=== PATIENT | female | born 1990 | race American Indian/Alaskan Native ===

== ENCOUNTER → 2016-07-05 | Outpatient (CLI) | payer MEDICAID ==
[~2016-07-05] MED LIST: ACYC5CRE2 TP; ACYC5CRE3 TP; ALBU8.5H3 INH; CETI5TAB3 PO; FAMO40TA4 PO; FLUT9.9S NAS; HYDR200T PO; LORA-446 PO; MEDR150D3 IM; MYCO500T PO; MYCO500T3 PO; QUET400T PO; QUET400T4 PO; SUCR1TAB PO; SUMA50TA4 PO
== END | disposition home or self-care (01) ==
LOC: RAD 16:12
PROVIDERS: ATTEND Specialist
DX: M32.9 Systemic lupus erythematosus, unspecified (principal); Z92.25 Personal history of immunosuppression therapy
CPT/HCPCS: 71020

== ENCOUNTER 2017-04-19 17:28 | Inpatient (IN) | payer MEDICAID ==
[~2017-04-19] VITALS: Ht 160 cm; Wt 119.0 kg
[~2017-04-19 17:28] MED LIST changes: -ALBU8.5H3 INH; +ALBU8.5H8 INH; +DEXAMETHASONE 4 MG/ML, 1ML ONE; +ONDANSETRON 2MG/ML, 2ML ONE; +PROPOFOL 10 MG/ML, 20ML ONE; +ROCURONIUM 10 MG/ML,10ML ONE; +SUCCINYLCHOLINE 20 MG/ML, 10ML ONE
[2017-04-19 17:35] VITALS: BP 138/80
[2017-04-19 17:54] VITALS: BP 138/80
[2017-04-19] MEDS ORDERED: ONDANSETRON ODT 4 MG PO PRN (18:00)
[2017-04-19] MEDS ORDERED: DOCUSATE 100 MG CAPSULE PO PRN (18:00)
[2017-04-19] MEDS ORDERED: ENALAPRILAT 1.25 MG/ML, 2ML IVPush PRN (18:00)
[2017-04-19] MEDS ORDERED: PLEASE ENTER HEIGHT AND WEIGHT MC SCH (18:00)
[2017-04-19] MEDS ORDERED: ACETAMINOPHEN 325 MG TABLET PO PRN ×2 (18:00→20:30)
[2017-04-19] MEDS ORDERED: DEXTROSE 4 GM TAB.CHEW PO PRN (19:00)
[2017-04-19] MEDS ORDERED: GLUCAGON 1 MG IM PRN (19:00)
[2017-04-19] MEDS ORDERED: MIDAZOLAM 1 MG/ML, 2ML ONE (19:46)
[2017-04-19] MEDS ORDERED: FENTANYL PF 100 MCG/2ML ONE ×2 (19:46→20:32)
[2017-04-19] MEDS ORDERED: LIDOCAINE/MPF 2%-EPI 1:200K, 20 ML ONE (19:52)
[2017-04-19] MEDS ORDERED: METOCLOPRAMIDE 5 MG/ML, 2ML IV PRN (20:30)
[2017-04-19] MEDS ORDERED: ONDANSETRON 2MG/ML, 2ML IVPush PRN (20:30)
[2017-04-19] MEDS ORDERED: LABETALOL 5MG/ML, 20ML IV PRN (20:30)
[2017-04-19] MEDS ORDERED: FENTANYL PF 100 MCG/2ML IV PRN (20:30)
[2017-04-19] MEDS ORDERED: hydrALAzine 20 MG/ML, 1ML IV PRN (20:30)
[2017-04-19] MEDS ORDERED: HYDROmorphone 1 MG/ML, 1ML IV PRN (20:30)
[2017-04-19] MEDS ORDERED: OXYcodone 5 MG/5 ML ORAL.SOL UDC PO PRN (20:30)
[2017-04-19] MEDS ORDERED: ACETAMINOPHEN 650 MG/20.3 ML UDC ONE (20:32)
[2017-04-19] MEDS ORDERED: MEPERIDINE/PF 50 MG/ML ONE (20:33)
[2017-04-19] MEDS ORDERED: OXYcodone 5 MG/5 ML ORAL.SOL UDC ONE (20:33)
[2017-04-19] MEDS ORDERED: LIDOCAINE 2%-EPI 1:100K, 30ML INFIL ONE (20:33)
[2017-04-19] MEDS ORDERED: MEPERIDINE/PF 25MG/0.5ML IVPush ONE (21:00)
[2017-04-19] MEDS: INSULIN ASPART 100 UNITS/ML, PEN SQ-INSULIN SCH (22:45)
[2017-04-19] MEDS: CHLORHEXIDINE MOUTHWASH 15 ML UDC MM SCH (22:45)
[2017-04-19] MEDS: SODIUM CHLORIDE FLUSH 10ML SYR IVF SCH (23:26)
[2017-04-20 00:02] VITALS: BP 129/64
[2017-04-20] MEDS: CLINDAMYCIN PMX 600MG/50ML 50 ML IV SCH ×2 (00:29→08:36)
[2017-04-20 04:31] VITALS: BP 127/71
[2017-04-20] MEDS ORDERED: MELA1TAB22 PO (04:39)
[2017-04-20] MEDS ORDERED: MYCO500T3 PO (04:39)
[2017-04-20] MEDS ORDERED: LURA40TA PO (04:39)
[2017-04-20] MEDS ORDERED: SERT100T5 PO (04:39)
[2017-04-20 05:43] LABS: BASOPHILS # (AUTO) 0.02 x10^3/uL (0-0.1); BASOPHILS % (AUTO) 0 % (0-1); EOSINOPHILS % (AUTO) 0 % (1-7); LYMPHOCYTES # (AUTO) 1.63 x10^3/uL (1-3.4); LYMPHOCYTES % (AUTO) 12 % (22-44); MD NO; MEAN CORPUSCULAR HEMOGLOBIN 28.4 pg (27.0-34.8); MEAN CORPUSCULAR HGB CONC 33.2 g/dL (32.4-35.8); MEAN CORPUSCULAR VOLUME 85.7 fL (80-100); MEAN PLATELET VOLUME 9.5 fL (7.4-10.4); MONOCYTES # (AUTO) 1.07 x10^3/uL (0.2-0.8); MONOCYTES % (AUTO) 8 % (2-9); NEUTROPHILS # (AUTO) 11.17 x10^3/uL (1.8-6.8); NEUTROPHILS % (AUTO) 80 % (42-75); PLATELET COUNT 274 x10^3/uL (130-400); RED BLOOD COUNT 4.44 x10^6/uL (3.82-5.3); RED CELL DISTRIBUTION WIDTH 15.1 % (9.6-15.2)
[2017-04-20 05:55] LABS: ANION GAP 8 mmol/L (5-15); CALCIUM 8.4 mg/dL (8.5-10.1); CHLORIDE 110 mmol/L (98-107)
[2017-04-20 05:57] LABS: CREATININE 0.76 mg/dL (0.55-1.02)
[2017-04-20 06:49] VITALS: BP 109/58
[2017-04-20] MEDS: INSULIN ASPART 100 UNITS/ML, PEN SQ-INSULIN SCH ×2 (07:21→11:00)
[2017-04-20] MEDS: CHLORHEXIDINE MOUTHWASH 15 ML UDC MM SCH (08:35)
[2017-04-20] MEDS: SODIUM CHLORIDE FLUSH 10ML SYR IVF SCH (08:36)
[2017-04-20] MEDS ORDERED: ONDA4TAB13 PO (11:06)
[2017-04-20] MEDS ORDERED: CHLO473M MM (11:06)
[2017-04-20] MEDS ORDERED: CLIN300C8 PO (11:06)
[2017-04-20] MEDS ORDERED: HYDR-3240 PO (11:06)
[2017-04-20 12:54] VITALS: BP 103/59
== END 2017-04-20 14:40 | disposition home or self-care (01) | DRG 158 ==
LOC: 4NOR 17:28
PROVIDERS: ADMIT Family Medicine; ATTEND Family Medicine
PROC: 0CDWXZ1 Extraction of Upper Tooth, Multiple, External Approach (ICD-10-PCS; principal; 2017-04-19 19:30)
DX: K04.7 Periapical abscess without sinus (principal); Z68.42 Body mass index [BMI] 45.0-49.9, adult; E66.01 Morbid (severe) obesity due to excess calories; L02.412 Cutaneous abscess of left axilla; F31.9 Bipolar disorder, unspecified; K02.9 Dental caries, unspecified; M27.2 Inflammatory conditions of jaws; M32.9 Systemic lupus erythematosus, unspecified; Z88.0 Allergy status to penicillin; Z88.8 Allergy status to other drugs, medicaments and biological substances; Z91.030 Bee allergy status; Z91.018 Allergy to other foods
CPT/HCPCS: 36415; 70100; 80048; 82962; 85025; J1100; J1815; J2175; J2250; J2405; J2704; J3010; J3490; J0330

== ENCOUNTER → 2017-11-28 | Outpatient (CLI) | payer MEDICAID ==
[~2017-11-28] MED LIST changes: +CHLO473M MM; +CLIN300C8 PO; -DEXAMETHASONE 4 MG/ML, 1ML ONE; +HYDR-3240 PO; -HYDR200T PO; +HYDR200T72 PO; +LIDOCAINE-MPF 2%, 2ML ONE; +LURA40TA PO; +MELA1TAB22 PO; +ONDA4TAB13 PO; -ONDANSETRON 2MG/ML, 2ML ONE; -PROPOFOL 10 MG/ML, 20ML ONE; -ROCURONIUM 10 MG/ML,10ML ONE; +SERT100T5 PO; -SUCCINYLCHOLINE 20 MG/ML, 10ML ONE; +VISIPAQUE 270 MG/ML, 50ML BOTTLE ONE
== END | disposition home or self-care (01) ==
LOC: RAD 14:17
PROVIDERS: ATTEND Specialist
DX: M32.9 Systemic lupus erythematosus, unspecified (principal)
CPT/HCPCS: 76000; J1642; J3490; Q9966

== ENCOUNTER 2018-02-06 10:36 | Day surgery (SDC) | payer MEDICAID ==
[~2018-02-06] VITALS: Ht 157.5 cm; Wt 131.5 kg
[~2018-02-06 10:36] MED LIST changes: -LIDOCAINE-MPF 2%, 2ML ONE; -VISIPAQUE 270 MG/ML, 50ML BOTTLE ONE
[2018-02-06 11:13] VITALS: BP 124/83
[2018-02-06] MEDS ORDERED: SODIUM CHLORIDE 0.9% 1,000 ML IV SCH (11:30)
[2018-02-06] MEDS ORDERED: LIDOCAINE/PF 1%, 30ML ONE (12:18)
[2018-02-06] MEDS ORDERED: FLUMAZENIL 0.1 MG/1 ML, 5ML ONE (12:44)
[2018-02-06] MEDS ORDERED: FENTANYL PF 100 MCG/2ML ONE (12:44)
[2018-02-06] MEDS ORDERED: MIDAZOLAM 1 MG/ML, 5ML ONE (12:44)
[2018-02-06] MEDS ORDERED: NALOXONE 1 MG/ML, 2ML ONE (12:45)
== END 2018-02-06 14:50 | disposition home or self-care (01) ==
LOC: OUT 10:36
PROVIDERS: ATTEND Specialist
DX: Z45.2 Encounter for adjustment and management of vascular access device (principal); M32.9 Systemic lupus erythematosus, unspecified; J45.909 Unspecified asthma, uncomplicated; E66.01 Morbid (severe) obesity due to excess calories; Z88.0 Allergy status to penicillin
CPT/HCPCS: 36590; 77001; 99156; 99157; J2250; J3010; J3490; J7030; J2310

== ENCOUNTER 2019-04-24 00:34 | Inpatient (IN) | payer MEDICAID ==
[~2019-04-24] VITALS: Ht 157.5 cm; Wt 120.0 kg
[~2019-04-24 00:34] MED LIST changes: +SERT100T32 PO; -SERT100T5 PO
[2019-04-24] MEDS ORDERED: POLYETHYLENE GLYCOL 17 GM PACKET PO PRN (02:30)
[2019-04-24] MEDS ORDERED: ACETAMINOPHEN 325 MG TABLET PO PRN (02:30)
[2019-04-24] MEDS ORDERED: DOCUSATE 100 MG CAPSULE PO PRN (02:30)
[2019-04-24] MEDS ORDERED: BISACODYL 10 MG SUPP PR PRN (02:30)
[2019-04-24] MEDS ORDERED: ONDANSETRON ODT 4 MG PO PRN (02:30)
[2019-04-24 04:00] VITALS: BP 143/87
[2019-04-24 05:07] LABS: MICROSCOPIC NOT IND
[2019-04-24 05:24] LABS: CULTURE INDICATED? NO
[2019-04-24] MEDS ORDERED: FLU VACC QS2019-20 36MOS UP/PF 0.5 ML IM-VACC ONE (06:00)
[2019-04-24 07:42] VITALS: BP 109/74
[2019-04-24 08:43] LABS: CHOLESTEROL, TOTAL 159 mg/dL (140-239)
[2019-04-24 08:46] LABS: BASOPHILS # (AUTO) 0.06 x10^3/uL (0-0.1); BASOPHILS % (AUTO) 1 % (0-1); EOSINOPHILS # (AUTO) 0.19 x10^3/uL (0-0.4); EOSINOPHILS % (AUTO) 2 % (1-7); LYMPHOCYTES # (AUTO) 3.39 x10^3/uL (1-3.4); LYMPHOCYTES % (AUTO) 37 % (22-44); MD NO; MEAN CORPUSCULAR HEMOGLOBIN 29.4 pg (27.0-34.8); MEAN CORPUSCULAR HGB CONC 32.9 g/dL (32.4-35.8); MEAN CORPUSCULAR VOLUME 89.2 fL (80-100); MEAN PLATELET VOLUME 9.4 fL (7.4-10.4); MONOCYTES # (AUTO) 0.73 x10^3/uL (0.2-0.8); MONOCYTES % (AUTO) 8 % (2-9); NEUTROPHILS # (AUTO) 4.87 x10^3/uL (1.8-6.8); NEUTROPHILS % (AUTO) 53 % (42-75); PLATELET COUNT 298 x10^3/uL (130-400); RED BLOOD COUNT 4.48 x10^6/uL (3.82-5.3); RED CELL DISTRIBUTION WIDTH 14.2 % (9.6-15.2)
[2019-04-24 08:48] LABS: CHOL/HDL RATIO 3.1; FREE T4 (FREE THYROXINE) 0.99 ng/dL (0.76-1.46); HDL CHOL % 33 % (28-40); HDL CHOLESTEROL (DIRECT) 52 mg/dL (40-60); LDL CHOLESTEROL,CALCULATED 83 mg/dL (54-169); LDL/HDL RATIO 1.6 (0.5-3.0); TRIGLYCERIDES 119 mg/dL (50-200); VLDL CHOLESTEROL 24 mg/dL (0-25)
[2019-04-24] MEDS ORDERED: MONT10TA9 PO (10:54)
[2019-04-24] MEDS ORDERED: CETI-237 PO (10:54)
[2019-04-24] MEDS ORDERED: PRAZ1CAP2 PO (10:54)
[2019-04-24] MEDS ORDERED: PANT40TA5 PO (10:54)
[2019-04-24] MEDS ORDERED: CALC-47 PO (10:54)
[2019-04-24] MEDS ORDERED: TRAZ50TA66 PO (10:54)
[2019-04-24] MEDS: IBUPROFEN 200 MG TABLET PO PRN (11:08)
[2019-04-24] MEDS ORDERED: CALCIUM/VITAMIN D3 250-125 TABLET PO SCH (12:30)
[2019-04-24] MEDS ORDERED: PANTOPROZOLE 40MG TABLET PO SCH (12:30)
[2019-04-24] MEDS ORDERED: PANTOPROZOLE 40MG TABLET ONE (13:41)
[2019-04-24] MEDS: PANTOPROZOLE 40MG TABLET PO SCH (13:49)
[2019-04-24] MEDS: FLUOXETINE HCL 20 MG CAPSULE PO SCH (14:32)
[2019-04-24] MEDS: LORazepam 1MG TABLET PO PRN (17:49)
[2019-04-24 19:07] VITALS: BP 122/83
[2019-04-24] MEDS: QUETIAPINE 100MG TABLET PO SCH (19:42)
[2019-04-24] MEDS: MONTELUKAST 10 MG TABLET PO SCH (19:42)
[2019-04-24] MEDS: PRAZOSIN 1 MG CAPSULE PO SCH (19:42)
[2019-04-25 07:27] VITALS: BP 117/80
[2019-04-25] MEDS ORDERED: PANTOPROZOLE 40MG TABLET PO SCH (09:00)
[2019-04-25] MEDS: PANTOPROZOLE 40MG TABLET PO SCH (09:37)
[2019-04-25] MEDS: IBUPROFEN 200 MG TABLET PO PRN ×2 (09:38→20:39)
[2019-04-25] MEDS: FLUOXETINE HCL 20 MG CAPSULE PO SCH (09:38)
[2019-04-25] MEDS: CALCIUM/VITAMIN D3 250-125 TABLET PO SCH (09:39)
[2019-04-25 19:29] VITALS: BP 122/81
[2019-04-25] MEDS: PRAZOSIN 1 MG CAPSULE PO SCH (20:40)
[2019-04-25] MEDS: QUETIAPINE 100MG TABLET PO SCH (20:40)
[2019-04-25] MEDS: MONTELUKAST 10 MG TABLET PO SCH (20:41)
[2019-04-26 07:15] VITALS: BP 97/66
[2019-04-26] MEDS: PANTOPROZOLE 40MG TABLET PO SCH (08:39)
[2019-04-26] MEDS: CALCIUM/VITAMIN D3 250-125 TABLET PO SCH (08:39)
[2019-04-26] MEDS: FLUOXETINE HCL 20 MG CAPSULE PO SCH (08:40)
[2019-04-26] MEDS: LORazepam 1MG TABLET PO PRN (09:52)
[2019-04-26 19:38] VITALS: BP 116/75
[2019-04-26] MEDS: MONTELUKAST 10 MG TABLET PO SCH (21:36)
[2019-04-26] MEDS: ACAMPROSATE 333 MG TABLET.DR PO SCH (21:36)
[2019-04-26] MEDS: PRAZOSIN 1 MG CAPSULE PO SCH (21:36)
[2019-04-26] MEDS: QUETIAPINE 100MG TABLET PO SCH (21:36)
[2019-04-27] MEDS: IBUPROFEN 200 MG TABLET PO PRN ×3 (05:27→20:37)
[2019-04-27 07:56] VITALS: BP 123/87
[2019-04-27] MEDS: PANTOPROZOLE 40MG TABLET PO SCH (08:46)
[2019-04-27] MEDS: CALCIUM/VITAMIN D3 250-125 TABLET PO SCH (08:46)
[2019-04-27] MEDS: FLUOXETINE HCL 20 MG CAPSULE PO SCH (08:46)
[2019-04-27] MEDS: ACAMPROSATE 333 MG TABLET.DR PO SCH ×3 (08:46→20:34)
[2019-04-27] MEDS: LORazepam 1MG TABLET PO PRN (17:27)
[2019-04-27 20:30] VITALS: BP 133/89
[2019-04-27] MEDS: QUETIAPINE 100MG TABLET PO SCH (20:34)
[2019-04-27] MEDS: PRAZOSIN 1 MG CAPSULE PO SCH (20:35)
[2019-04-27] MEDS: MONTELUKAST 10 MG TABLET PO SCH (20:35)
[2019-04-28 07:48] VITALS: BP 117/79
[2019-04-28] MEDS: CALCIUM/VITAMIN D3 250-125 TABLET PO SCH (08:32)
[2019-04-28] MEDS: FLUOXETINE HCL 20 MG CAPSULE PO SCH (08:32)
[2019-04-28] MEDS: PANTOPROZOLE 40MG TABLET PO SCH (08:32)
[2019-04-28] MEDS: ACAMPROSATE 333 MG TABLET.DR PO SCH ×4 (08:33→21:15)
[2019-04-28] MEDS: IBUPROFEN 200 MG TABLET PO PRN ×2 (08:38→17:46)
[2019-04-28] MEDS: LORazepam 1MG TABLET PO PRN (13:11)
[2019-04-28] MEDS ORDERED: PRAZ1CAP2 PO (16:28)
[2019-04-28] MEDS ORDERED: ACAM333T7 PO (16:28)
[2019-04-28] MEDS ORDERED: QUET100T PO (16:28)
[2019-04-28] MEDS ORDERED: FLUO20CA8 PO (16:28)
[2019-04-28] MEDS ORDERED: MONT10TA9 PO (16:28)
[2019-04-28] MEDS ORDERED: PANT40TA5 PO (16:28)
[2019-04-28] MEDS: MONTELUKAST 10 MG TABLET PO SCH (21:15)
[2019-04-28] MEDS: QUETIAPINE 100MG TABLET PO SCH (21:15)
[2019-04-28] MEDS: PRAZOSIN 1 MG CAPSULE PO SCH (21:15)
[2019-04-29] MEDS: IBUPROFEN 200 MG TABLET PO PRN (06:16)
[2019-04-29 06:59] VITALS: BP 133/81
[2019-04-29] MEDS: CALCIUM/VITAMIN D3 250-125 TABLET PO SCH (08:25)
[2019-04-29] MEDS: PANTOPROZOLE 40MG TABLET PO SCH (08:25)
[2019-04-29] MEDS: FLUOXETINE HCL 20 MG CAPSULE PO SCH (08:25)
== END 2019-04-29 09:16 | disposition home or self-care (01) | DRG 751 ==
LOC: 3E 03:04
PROVIDERS: ADMIT Psychiatry & Neurology Psychosomatic Medicine; ATTEND Psychiatry & Neurology Psychosomatic Medicine
DX: F33.2 Major depressive disorder, recurrent severe without psychotic features (principal); M32.9 Systemic lupus erythematosus, unspecified; E66.01 Morbid (severe) obesity due to excess calories; F43.10 Post-traumatic stress disorder, unspecified; K21.9 Gastro-esophageal reflux disease without esophagitis; Z91.5 Personal history of self-harm; Z68.42 Body mass index [BMI] 45.0-49.9, adult
CPT/HCPCS: 36415; 71045; 80061; 81003; 82607; 84439; 84443; 84703; 85025; 90686; 93005

== ENCOUNTER 2019-05-03 15:35 | Emergency (ER) | payer MEDICAID ==
[~2019-05-03] VITALS: Ht 157.5 cm; Wt 120.9 kg
[~2019-05-03 15:35] MED LIST changes: +ACAM333T7 PO; +CALC-47 PO; +CETI-237 PO; +FLUO20CA23 PO; +MONT10TA11 PO; +PANT40TA5 PO; +PRAZ1CAP2 PO; +QUET100T PO; +TRAZ50TA66 PO
--- NOTE | 2019-05-03 16:02 | NUR ---
FIRST CONTACT WITH PT. DEPRESSION/SI - PT STATES "I DON'T HAVE A PLAN, JUST THOUGHTS, I HAVE TRIED TO JUMP IN FRONT OF A BUS BEFORE" PT'S AOX4. RESPS EVEN AND UNLABORED. PT DENIES ANY PHYSICAL COMPLAINTS.
--- NOTE | 2019-05-03 16:06 | NUR ---
PT BELONGINGHS PUT INTO 3 BAGS AND PT HAS ONE BACKPACK. EVERYTHING PUT INTO THE LOCKER AT THIS TIME.
--- NOTE | 2019-05-03 16:26 | NUR ---
EDMD AT BEDSIDE TO EVALUATE AT THIS TIME.
--- NOTE | 2019-05-03 16:26 | NUR ---
MEAL TRAY PROVIDED AT THIS TIME.
--- NOTE | 2019-05-03 17:05 | NUR ---
LAB AT BEDSIDE. PILLOW GIVEN AT THIS TIME PER PT REQUEST.
--- NOTE | 2019-05-03 17:15 | NUR ---
PT AMB TO BR WITH THIS RN FOR UA.
[2019-05-03 17:19] LABS: BASOPHILS # (AUTO) 0.07 x10^3/uL (0-0.1); BASOPHILS % (AUTO) 1 % (0-1); EOSINOPHILS # (AUTO) 0.18 x10^3/uL (0-0.4); EOSINOPHILS % (AUTO) 2 % (1-7); LYMPHOCYTES % (AUTO) 25 % (22-44); MD NO; MEAN CORPUSCULAR HEMOGLOBIN 29.1 pg (27.0-34.8); MEAN CORPUSCULAR HGB CONC 32.6 g/dL (32.4-35.8); MEAN CORPUSCULAR VOLUME 89.4 fL (80-100); MONOCYTES # (AUTO) 0.71 x10^3/uL (0.2-0.8); MONOCYTES % (AUTO) 7 % (2-9); NEUTROPHILS # (AUTO) 6.99 x10^3/uL (1.8-6.8); NEUTROPHILS % (AUTO) 66 % (42-75); PLATELET COUNT 328 x10^3/uL (130-400); RED BLOOD COUNT 4.66 x10^6/uL (3.82-5.3); RED CELL DISTRIBUTION WIDTH 14.2 % (9.6-15.2)
--- NOTE | 2019-05-03 17:19 | NUR ---
PT PROVIDED URINE SAMPLE AT THIS TIME. UA SENT.
[2019-05-03 17:26] LABS: ALANINE AMINOTRANSFERASE 32 U/L (12-78); ALBUMIN 3.3 g/dL (3.4-5.0); ANION GAP 8 mmol/L (5-15); CALCIUM 8.5 mg/dL (8.5-10.1); CHLORIDE 108 mmol/L (98-107); CREATININE 0.94 mg/dL (0.55-1.02)
[2019-05-03 17:27] LABS: SALICYLATE LEVEL < 1.7 mg/dL (2.8-20.0)
[2019-05-03 17:31] LABS: ALKALINE PHOSPHATASE 94 U/L (45-117); BILIRUBIN,TOTAL 0.3 mg/dL (0.2-1.0)
--- NOTE | 2019-05-03 17:34 | NUR ---
soc called for consult
[2019-05-03 17:38] LABS: AMPHETAMINE SCREEN, URINE Negative (Negative); BARBITURATE SCREEN, URINE Negative (Negative); BENZODIAZEPINE SCREEN, URINE Negative (Negative); CANNABINOID SCREEN, URINE Negative (Negative); COCAINE SCREEN, URINE Negative (Negative); METHADONE SCREEN, URINE Negative (Negative); OPIATE SCREEN, URINE Negative (Negative)
--- NOTE | 2019-05-03 18:38 | NUR ---
PT RESTING IN [place]. RESPS EVEN AND UNLABORED. AWAITING SOC CONSULT AT THIS TIME.
--- NOTE | 2019-05-03 18:58 | NUR ---
REPORT GIVEN TO JORGE GARDINER.
--- NOTE | 2019-05-03 19:09 | NUR ---
RECEIVED RPT FROM ABDIFATAH CALIXTO. ASSUMED CARE OF PT.
--- NOTE | 2019-05-03 20:57 | NUR ---
RPT GIVEN TO SOC. NO OTHER NEEDS AT THIS TIME. TELE PSYCH IN PROGRESS.
--- NOTE | 2019-05-03 21:30 | NUR ---
TALKED WITH TELE PSYCH. PT STATES SHE HAD A PLAN. "WAITING TO GET HER HANDS ON SOMETHING SHARP SO SHE CAN CUT THE BIGGEST ARTERY SHE CAN FIND" PT PLACED ON HOLD.
--- NOTE | 2019-05-03 21:39 | NUR ---
psych packet faxed to [facility], [facility], [facility], [facility], [facility].
[2019-05-03] MEDS ORDERED: IBUPROFEN 600 MG TABLET ONE (21:41)
[2019-05-03] MEDS ORDERED: IBUPROFEN 200 MG TABLET PO ONE (22:00)
--- NOTE | 2019-05-03 22:00 | NUR ---
PT RESTING WITH EYES CLOSED. SAFTEY PRECAUTIONS IN PLACE. SITTER AT DOORWAY
[2019-05-03 22:07] VITALS: BP 116/71
--- NOTE | 2019-05-03 23:44 | NUR ---
[facility] NOTE:Patient insurance verified and confirmed with [facility] admitting. Awaiting callback from Dr. Singh for admit or refusal to [facility].
--- NOTE | 2019-05-04 | NUR ---
PT RESTING WITH EYES CLOSED. SAFTEY PRECAUTIONS IN PLACE. SITTER AT DOORWAY
--- NOTE | 2019-05-04 01:38 | NUR ---
PT RESTING WITH EYES CLOSED. SAFTEY PRECAUTIONS IN PLACE. SITTER AT DOORWAY.
--- NOTE | 2019-05-04 02:30 | NUR ---
PT RESTING WITH EYES CLOSED. SAFTEY PRECAUTIONS IN PLACE. SITTER AT DOORWAY.
--- NOTE | 2019-05-04 03:38 | NUR ---
CALLED RPT TO [facility] RN, PT READY FOR TRANSFER.
[2019-05-06] MEDS ORDERED: VALA500T8 PO (13:23)
== END 2019-05-04 03:47 ==
LOC: ED 17:20
DX: R45.851 Suicidal ideations (principal); F32.9 Major depressive disorder, single episode, unspecified
CPT/HCPCS: 36415; 80053; 80307; 84703; 85025; 99285

== ENCOUNTER 2019-05-04 03:09 | Inpatient (IN) | payer MEDICAID ==
[~2019-05-04] VITALS: Ht 170.2 cm; Wt 120.9 kg
[~2019-05-04 03:09] MED LIST changes: -FLUO20CA23 PO; +FLUO20CA8 PO; -MONT10TA11 PO; +MONT10TA9 PO
[2019-05-04] MEDS ORDERED: ONDANSETRON ODT 4 MG PO PRN (03:30)
[2019-05-04] MEDS ORDERED: DOCUSATE 100 MG CAPSULE PO PRN (03:30)
[2019-05-04] MEDS ORDERED: BISACODYL 10 MG SUPP PR PRN (03:30)
[2019-05-04] MEDS ORDERED: POLYETHYLENE GLYCOL 17 GM PACKET PO PRN (03:30)
[2019-05-04] MEDS ORDERED: ACETAMINOPHEN 325 MG TABLET PO PRN (03:30)
[2019-05-04] MEDS ORDERED: PLEASE ENTER HEIGHT AND WEIGHT MC SCH (04:00)
[2019-05-04 05:25] VITALS: BP 124/86
[2019-05-04 07:46] VITALS: BP 110/70
[2019-05-04] MEDS ORDERED: POTASSIUM CHLORIDE 20 MEQ PACKET PO ONE (08:30)
[2019-05-04] MEDS ORDERED: IBUPROFEN 600 MG TABLET PO PRN (08:30)
[2019-05-04] MEDS: CLINDAMYCIN 300 MG CAPSULE PO SCH ×3 (09:15→20:19)
[2019-05-04 11:40] LABS: MICROSCOPIC INDICATED
[2019-05-04 11:43] LABS: CULTURE INDICATED? YES
[2019-05-04 20:14] VITALS: BP 117/79
[2019-05-04] MEDS: QUETIAPINE 100MG TABLET PO SCH (20:19)
[2019-05-05] MEDS: CLINDAMYCIN 300 MG CAPSULE PO SCH ×4 (02:40→20:37)
[2019-05-05 06:02] LABS: BASOPHILS # (AUTO) 0.02 x10^3/uL (0-0.1); BASOPHILS % (AUTO) 0 % (0-1); EOSINOPHILS # (AUTO) 0.16 x10^3/uL (0-0.4); EOSINOPHILS % (AUTO) 3 % (1-7); LYMPHOCYTES # (AUTO) 2.61 x10^3/uL (1-3.4); LYMPHOCYTES % (AUTO) 42 % (22-44); MD NO; MEAN PLATELET VOLUME 9.4 fL (7.4-10.4); MONOCYTES # (AUTO) 0.51 x10^3/uL (0.2-0.8); MONOCYTES % (AUTO) 8 % (2-9); NEUTROPHILS # (AUTO) 2.88 x10^3/uL (1.8-6.8); NEUTROPHILS % (AUTO) 47 % (42-75); PLATELET COUNT 312 x10^3/uL (130-400); RED BLOOD COUNT 4.26 x10^6/uL (3.82-5.3); RED CELL DISTRIBUTION WIDTH 14.3 % (9.6-15.2)
[2019-05-05 06:04] LABS: ANION GAP 6 mmol/L (5-15); CALCIUM 9.1 mg/dL (8.5-10.1); CHLORIDE 110 mmol/L (98-107)
[2019-05-05 06:32] LABS: CHOL/HDL RATIO 3.3; CHOLESTEROL, TOTAL 144 mg/dL (140-239); CREATININE 0.77 mg/dL (0.55-1.02); FREE T4 (FREE THYROXINE) 1.04 ng/dL (0.76-1.46); HDL CHOL % 30 % (28-40); HDL CHOLESTEROL (DIRECT) 43 mg/dL (40-60); LDL CHOLESTEROL,CALCULATED 86 mg/dL (54-169); TRIGLYCERIDES 75 mg/dL (50-200); VLDL CHOLESTEROL 15 mg/dL (0-25)
[2019-05-05 07:33] VITALS: BP 103/69
[2019-05-05] MEDS: VALACYCLOVIR 500MG TABLET PO SCH ×2 (10:57→20:37)
[2019-05-05] MEDS: LACTOBACILLUS CHEW TABLET PO SCH ×3 (10:57→20:37)
[2019-05-05] MEDS: SERTRALINE 50MG TABLET PO SCH (16:22)
[2019-05-05 19:56] VITALS: BP 105/64
[2019-05-05] MEDS: QUETIAPINE 100MG TABLET PO SCH (20:37)
[2019-05-05] MEDS ORDERED: PRAZOSIN 2 MG CAPSULE PO SCH (21:00)
[2019-05-06] MEDS: CLINDAMYCIN 300 MG CAPSULE PO SCH ×3 (03:20→16:24)
[2019-05-06] MEDS: LACTOBACILLUS CHEW TABLET PO SCH ×3 (05:59→16:24)
[2019-05-06 07:17] VITALS: BP 134/92
[2019-05-06] MEDS: VALACYCLOVIR 500MG TABLET PO SCH (09:38)
[2019-05-06] MEDS: SERTRALINE 50MG TABLET PO SCH (09:38)
[2019-05-06] MEDS ORDERED: PRAZ2CAP2 PO (13:23)
[2019-05-06] MEDS ORDERED: CLIN300C8 PO (13:23)
[2019-05-06] MEDS ORDERED: VALA500T PO (13:23)
[2019-05-06] MEDS ORDERED: SERT50TA28 PO (13:23)
[2019-05-06] MEDS ORDERED: ACID1TAB7 PO (13:23)
== END 2019-05-06 14:45 | disposition home or self-care (01) | DRG 751 ==
LOC: 3E 03:47
PROVIDERS: ADMIT Psychiatry & Neurology Psychosomatic Medicine; ATTEND Psychiatry & Neurology Psychosomatic Medicine
DX: F33.2 Major depressive disorder, recurrent severe without psychotic features (principal); E66.01 Morbid (severe) obesity due to excess calories; E46 Unspecified protein-calorie malnutrition; R45.851 Suicidal ideations; Z68.41 Body mass index [BMI] 40.0-44.9, adult; L03.116 Cellulitis of left lower limb; L97.129 Non-pressure chronic ulcer of left thigh with unspecified severity; F43.10 Post-traumatic stress disorder, unspecified; F41.1 Generalized anxiety disorder; G47.00 Insomnia, unspecified; J45.909 Unspecified asthma, uncomplicated; F17.210 Nicotine dependence, cigarettes, uncomplicated; E87.6 Hypokalemia; D72.829 Elevated white blood cell count, unspecified; L73.9 Follicular disorder, unspecified; R59.0 Localized enlarged lymph nodes; K59.00 Constipation, unspecified; K21.9 Gastro-esophageal reflux disease without esophagitis; Z60.2 Problems related to living alone; Z56.0 Unemployment, unspecified; Z91.5 Personal history of self-harm; Z79.899 Other long term (current) drug therapy; Z72.89 Other problems related to lifestyle; Z91.030 Bee allergy status; Z91.018 Allergy to other foods; Z88.0 Allergy status to penicillin; Z88.8 Allergy status to other drugs, medicaments and biological substances; Z91.048 Other nonmedicinal substance allergy status
CPT/HCPCS: 36415; 80048; 80061; 81001; 82607; 84439; 84443; 85025; 87086; 93005

== ENCOUNTER 2019-10-31 11:54 | Emergency (ER) | payer MEDICAID ==
[~2019-10-31] VITALS: Ht 157.5 cm; Wt 125.0 kg
[~2019-10-31 11:54] MED LIST changes: +ACID1TAB7 PO; +FLUO20CA23 PO; -FLUO20CA8 PO; +MONT10TA11 PO; -MONT10TA9 PO; +PRAZ2CAP2 PO; +SERT50TA28 PO; +VALA500T8 PO
[2019-10-31 12:00] VITALS: BP 110/78
--- NOTE | 2019-10-31 12:08 | NUR ---
pt from [facility]. [place]/body aches/sore throat x2 days. denies being around covid pts, no cough. no urinary sx/abd sx. hx lupus but in remission. motrin per ems. temp 101.5 oral, pt sts "that's normal for me". tachy 100s. awaitting md. call castro in reach. as
[2019-10-31] MEDS ORDERED: ACETAMINOPHEN 325 MG TABLET ONE (12:23)
[2019-10-31] MEDS ORDERED: ACETAMINOPHEN 325 MG TABLET PO ONE (12:30)
[2019-10-31] MEDS ORDERED: IBUPROFEN 600 MG TABLET PO ONE (12:30)
[2019-10-31 12:32] LABS: MEAN CORPUSCULAR HEMOGLOBIN 27.5 pg (27.0-34.8); MEAN CORPUSCULAR HGB CONC 31.9 g/dL (32.4-35.8); MEAN CORPUSCULAR VOLUME 86.2 fL (80-100); MEAN PLATELET VOLUME 8.4 fL (7.4-10.4); PLATELET COUNT 354 x10^3/uL (130-400); RED BLOOD COUNT 4.62 x10^6/uL (3.82-5.3); RED CELL DISTRIBUTION WIDTH 15.2 % (9.6-15.2)
--- NOTE | 2019-10-31 12:37 | NUR ---
oob to bathroom gait steady. as
[2019-10-31 12:42] LABS: ALBUMIN 3.6 g/dL (3.4-5.0); ANION GAP 3 mmol/L (5-15); CALCIUM 8.9 mg/dL (8.5-10.1); CHLORIDE 109 mmol/L (98-107)
[2019-10-31 12:45] LABS: ALANINE AMINOTRANSFERASE 27 U/L (12-78); ALKALINE PHOSPHATASE 96 U/L (45-117); BILIRUBIN,TOTAL 0.6 mg/dL (0.2-1.0); CREATININE 0.89 mg/dL (0.55-1.02); TOTAL PROTEIN 7.7 g/dL (6.4-8.2)
[2019-10-31 13:26] LABS: BASOPHILS # (AUTO) 0.01 x10^3/uL (0-0.1); BASOPHILS % (AUTO) 0 % (0-1); EOSINOPHILS # (AUTO) 0.04 x10^3/uL (0-0.4); EOSINOPHILS % (AUTO) 0 % (1-7); LYMPHOCYTES # (AUTO) 1.85 x10^3/uL (1-3.4); LYMPHOCYTES % (AUTO) 9 % (22-44); MD SCAN; MONOCYTES # (AUTO) 0.29 x10^3/uL (0.2-0.8); MONOCYTES % (AUTO) 1 % (2-9); NEUTROPHILS # (AUTO) 19.34 x10^3/uL (1.8-6.8); NEUTROPHILS % (AUTO) 90 % (42-75)
== END 2019-10-31 13:19 | disposition home or self-care (01) ==
LOC: ED 12:33
DX: J02.0 Streptococcal pharyngitis (principal); Z20.828 Contact with and (suspected) exposure to other viral communicable diseases; M32.9 Systemic lupus erythematosus, unspecified; F17.200 Nicotine dependence, unspecified, uncomplicated
CPT/HCPCS: 36415; 80053; 85025; 87635; 87880; 99283

== ENCOUNTER 2019-11-03 15:59 | Emergency (ER) | payer MEDICAID ==
[~2019-11-03] VITALS: Ht 167.6 cm; Wt 123.2 kg
[2019-11-03 16:02] VITALS: BP 113/84
== END 2019-11-03 17:37 | disposition home or self-care (01) ==
LOC: ED 17:00
DX: H57.89 Other specified disorders of eye and adnexa (principal); M32.9 Systemic lupus erythematosus, unspecified
CPT/HCPCS: 99283

== ENCOUNTER 2019-11-04 19:17 | Inpatient (IN) | payer MEDICAID ==
[~2019-11-04] VITALS: Ht 157.5 cm; Wt 130.7 kg
[~2019-11-04 19:17] MED LIST changes: -PANT40TA5 PO; +PANT40TA6 PO
[2019-11-04] MEDS ORDERED: SODIUM CHLORIDE 0.9% 1,000ML IVBOLUS ONE ×2 (19:30→21:00)
[2019-11-04] MEDS ORDERED: SODIUM CHLORIDE FLUSH 10ML SYR IVF ONE (19:30)
--- NOTE | 2019-11-04 19:32 | NUR ---
Patient BIB [facility] c/o body aches, fever, chill, and neck pain since today. Patient states she has been sick for the last few days. Patient called the ambulance earlier for today's symptoms and they admin Tylenol around noon. Patient also c/o burning with urination x3 days. Patient was seen here on Saturday and dx with strep throat; she states she was prescribed abx but did not get them filled. Patient states she has no way to get rx filled as she lives in a [facility]. Patient is in NAD. Respirations even and unlabored. Skin pink, dry, and hot to touch. Patient is febrile.
[2019-11-04 20:09] LABS: MEAN CORPUSCULAR HEMOGLOBIN 28.1 pg (27.0-34.8); MEAN PLATELET VOLUME 9.2 fL (7.4-10.4); PLATELET COUNT 358 x10^3/uL (130-400); RED BLOOD COUNT 4.36 x10^6/uL (3.82-5.3); RED CELL DISTRIBUTION WIDTH 14.4 % (9.6-15.2)
[2019-11-04 20:17] LABS: ALANINE AMINOTRANSFERASE 42 U/L (12-78); ALBUMIN 3.2 g/dL (3.4-5.0); ANION GAP 9 mmol/L (5-15); CALCIUM 8.9 mg/dL (8.5-10.1); CHLORIDE 104 mmol/L (98-107); CREATININE 1.18 mg/dL (0.55-1.02)
[2019-11-04 20:19] LABS: ALKALINE PHOSPHATASE 101 U/L (45-117); BILIRUBIN,TOTAL 0.7 mg/dL (0.2-1.0); TOTAL PROTEIN 8.2 g/dL (6.4-8.2)
[2019-11-04] MEDS ORDERED: ACETAMINOPHEN 500 MG TABLET ONE (20:20)
[2019-11-04 20:30] LABS: MICROSCOPIC INDICATED
[2019-11-04] MEDS ORDERED: ACETAMINOPHEN 500 MG TABLET PO ONE (20:30)
[2019-11-04 20:34] LABS: MD YES
[2019-11-04 20:38] LABS: BAND#(MANUAL) 0.98 x10^3/uL; BANDS%(MANUAL) 4 % (0-7); LYMPH#(MANUAL) 1.95 x10^3/uL (1-3.4); LYMPHS% (MANUAL) 8 % (22-44); SEG#(MANUAL) 21.47 x10^3/uL (1.8-6.8); SEGS% (MANUAL) 88 % (42-75)
[2019-11-04 20:40] LABS: <PLATELET ESTIMATE> ADEQUATE; <PLT MORPHOLOGY> NORMAL PLT MORPH; <RBC MORPHOLOGY> NORMAL
[2019-11-04] MEDS ORDERED: CEFTRIAXONE PMX 1GM/50ML 50 ML ONE (20:47)
[2019-11-04] MEDS ORDERED: CEFTRIAXONE PMX 1GM/50ML 50 ML IV ONE (21:00)
[2019-11-04] MEDS ORDERED: KETOROLAC 30 MG/1 ML ONE (21:52)
[2019-11-04] MEDS ORDERED: KETOROLAC 30 MG/1 ML IVPush ONE (22:00)
[2019-11-04 23:17] LABS: AMPHETAMINE SCREEN, URINE Negative (Negative); BARBITURATE SCREEN, URINE Negative (Negative); BENZODIAZEPINE SCREEN, URINE Negative (Negative); CANNABINOID SCREEN, URINE Negative (Negative); COCAINE SCREEN, URINE Negative (Negative); METHADONE SCREEN, URINE Negative (Negative); OPIATE SCREEN, URINE Negative (Negative)
[2019-11-04 23:25] LABS: C-REACTIVE PROTEIN, QUANT 5.6 mg/dL (0.02-0.49)
[2019-11-04] MEDS ORDERED: SODIUM CHLORIDE 0.9% 1,000 ML IV SCH (23:25)
[2019-11-04] MEDS ORDERED: POLYETHYLENE GLYCOL 17 GM PACKET PO PRN (23:30)
[2019-11-04] MEDS ORDERED: ONDANSETRON ODT 4 MG PO PRN (23:30)
[2019-11-04] MEDS ORDERED: BISACODYL 10 MG SUPP PR PRN (23:30)
[2019-11-04] MEDS ORDERED: CEFTRIAXONE PMX 1GM/50ML 50 ML IV SCH (23:30)
[2019-11-04] MEDS ORDERED: TRAZODONE 50MG TABLET PO PRN (23:30)
[2019-11-04] MEDS ORDERED: KETOROLAC 30 MG/1 ML IV PRN (23:30)
[2019-11-04] MEDS ORDERED: ACETAMINOPHEN 325 MG TABLET PO PRN (23:30)
[2019-11-05] MEDS ORDERED: HEPARIN 5,000 UNITS/ML, 1ML ONE ×2 (00:15→08:11)
[2019-11-05] MEDS: HEPARIN 5,000 UNITS/ML, 1ML SQ SCH ×5 (00:28→21:00)
--- NOTE | 2019-11-05 00:30 | NUR ---
PT REFUSING HEPARIN INJECTION, EDUCATED PT ON PURPOSE OF BLOOD THINNER DURING HOSPITALIZATION AND PREVENTION OF BLOOD CLOTS. PT STILL REFUSED.
--- NOTE | 2019-11-05 02:39 | NUR ---
PT O2 SAT DOWN TO 80% RA WHILE ASLEEP, PLACED PT ON 2L NC. PT REPORTS SHE THINKS SHE HAS SLEEP APNEA.
[2019-11-05] MEDS ORDERED: ACETAMINOPHEN 325 MG TABLET ONE (03:10)
[2019-11-05] MEDS ORDERED: TRAZODONE 50MG TABLET ONE (03:13)
--- NOTE | 2019-11-05 03:15 | NUR ---
PT C/O GENERALIZED BODY ACHES, AND UNABLE TO SLEEP. PT MEDICATED PER. JUN.
[2019-11-05 05:18] LABS: MEAN CORPUSCULAR HEMOGLOBIN 28.5 pg (27.0-34.8); MEAN PLATELET VOLUME 9.4 fL (7.4-10.4); PLATELET COUNT 306 x10^3/uL (130-400); RED BLOOD COUNT 3.87 x10^6/uL (3.82-5.3); RED CELL DISTRIBUTION WIDTH 14.5 % (9.6-15.2)
[2019-11-05 05:27] LABS: ANION GAP 7 mmol/L (5-15); CALCIUM 7.5 mg/dL (8.5-10.1); CHLORIDE 110 mmol/L (98-107)
[2019-11-05 05:46] LABS: MD YES
[2019-11-05 05:48] LABS: <PLATELET ESTIMATE> ADEQUATE; <PLT MORPHOLOGY> NORMAL PLT MORPH; <RBC MORPHOLOGY> NORMAL; LYMPH#(MANUAL) 2.54 x10^3/uL (1-3.4); LYMPHS% (MANUAL) 13 % (22-44); MONOS#(MANUAL) 0.59 x10^3/uL (0.3-2.7); MONOS% (MANUAL) 3 % (2-9); SEG#(MANUAL) 16.38 x10^3/uL (1.8-6.8); SEGS% (MANUAL) 84 % (42-75)
[2019-11-05] MEDS: LACTOBACILLUS CHEW TABLET PO SCH ×4 (06:00→20:59)
--- NOTE | 2019-11-05 06:00 | NUR ---
REQUESTED PROBIOTIC FROM PHARMACY.
--- NOTE | 2019-11-05 07:00 | NUR ---
BEDSIDE REPORT FROM DONTRELL GARDINER, PT RESTING IN [facility] ON MONITOR WITH CALL LIGHT WITHIN REACH. HOSPITAL BED ORDERED.
[2019-11-05] MEDS ORDERED: FLUOXETINE HCL 20 MG CAPSULE ONE (08:11)
[2019-11-05] MEDS ORDERED: SERTRALINE 50MG TABLET ONE (08:11)
[2019-11-05] MEDS ORDERED: SENNA/DOCUSATE TABLET ONE (08:11)
[2019-11-05] MEDS ORDERED: PANTOPRAZOLE 20MG TABLET ONE (08:11)
[2019-11-05] MEDS: PANTOPRAZOLE 40MG TABLET PO SCH (08:16)
[2019-11-05] MEDS: FLUOXETINE HCL 20 MG CAPSULE PO SCH (08:16)
[2019-11-05] MEDS: ACAMPROSATE 333 MG TABLET.DR PO SCH ×2 (08:27→11:48)
[2019-11-05] MEDS: CALCIUM/VITAMIN D3 250-125 TABLET PO SCH (08:28)
--- NOTE | 2019-11-05 08:30 | NUR ---
PT REFUSING ALL MEDS EXCEPT PROTONIX AND PROZAC, PT STATES SHE DOES NOT TAKE ZOLOFT AND CAMPRAL ANYMORE, PT REFUSING HEPARIN AND SENNA JUST STATING "NO" WHEN OFFERED. PT GIVEN BREAKFAST TRAY AND PROVIDED WITH EXTRA ORANGE JUICE PER REQUEST. MAINTENENCE IVF STOPPED AND DISCONTINUED. HOUSEKEEPING CALLED AGAIN FOR FLOOR BED. VS AND PHYSICAL ASSESSMENT UPDATED. CALL LIGHT WITHIN REACH.
[2019-11-05] MEDS ORDERED: SERTRALINE 50MG TABLET PO SCH (09:00)
[2019-11-05] MEDS ORDERED: SENNA/DOCUSATE TABLET PO SCH (09:00)
[2019-11-05] MEDS ORDERED: POTASSIUM CHLORIDE 20 MEQ TAB.ER.PRT PO ONE (10:30)
[2019-11-05] MEDS ORDERED: POTASSIUM CHLORIDE 20 MEQ TAB.ER.PRT ONE (12:25)
--- NOTE | 2019-11-05 12:31 | NUR ---
PT GIVEN LUNCH TRAY AND MEDICATED PER MAR, REQUESTING MORE SPRITE, PROVIDED. PT REQUESTING UPDATE ON GETTING ROOM, PER THROUGHPUT RN SHOULD BE WITHIN NEXT HOUR. PT UPDATED AND DEMONSTRATES UNDERSTANDING.
--- NOTE | 2019-11-05 13:47 | NUR ---
REPORT TO DAYNA GARDINER
--- NOTE | 2019-11-05 14:10 | NUR ---
TASK RN: PT TRANSFERRED TO FLOOR. PT LEFT WITH ALL PERSONAL BELONGINGS.
[2019-11-05 14:18] VITALS: BP 111/69
[2019-11-05] MEDS ORDERED: LACTOBACILLUS CHEW TABLET ONE (14:28)
[2019-11-05] MEDS ORDERED: LOPERAMIDE 2 MG CAPSULE PO PRN (15:30)
[2019-11-05 19:16] VITALS: BP 115/76
[2019-11-05] MEDS: CEFTRIAXONE PMX 1GM/50ML 50 ML IV SCH (20:58)
[2019-11-05] MEDS: MONTELUKAST 10 MG TABLET PO SCH ×2 (20:59→21:00)
[2019-11-05] MEDS: QUETIAPINE 100MG TABLET PO SCH (20:59)
[2019-11-06 00:33] VITALS: BP 116/70
[2019-11-06] MEDS: LACTOBACILLUS CHEW TABLET PO SCH ×4 (05:10→21:02)
[2019-11-06 08:36] VITALS: BP 120/74
[2019-11-06] MEDS: FLUOXETINE HCL 20 MG CAPSULE PO SCH (09:44)
[2019-11-06] MEDS: HEPARIN 5,000 UNITS/ML, 1ML SQ SCH ×3 (09:45→23:00)
[2019-11-06] MEDS: PANTOPRAZOLE 40MG TABLET PO SCH (09:45)
[2019-11-06] MEDS: CALCIUM/VITAMIN D3 250-125 TABLET PO SCH (09:45)
[2019-11-06 12:28] VITALS: BP 114/72
[2019-11-06 14:27] LABS: ALBUMIN 2.4 g/dL (3.4-5.0); ANION GAP 5 mmol/L (5-15); CALCIUM 8.9 mg/dL (8.5-10.1); CHLORIDE 113 mmol/L (98-107)
[2019-11-06 14:31] LABS: BASOPHILS # (AUTO) 0.03 x10^3/uL (0-0.1); BASOPHILS % (AUTO) 0 % (0-1); EOSINOPHILS # (AUTO) 0.36 x10^3/uL (0-0.4); EOSINOPHILS % (AUTO) 5 % (1-7); LYMPHOCYTES # (AUTO) 2.81 x10^3/uL (1-3.4); LYMPHOCYTES % (AUTO) 36 % (22-44); MD NO; MEAN CORPUSCULAR HEMOGLOBIN 28.1 pg (27.0-34.8); MEAN CORPUSCULAR HGB CONC 32.3 g/dL (32.4-35.8); MEAN PLATELET VOLUME 9.4 fL (7.4-10.4); MONOCYTES # (AUTO) 0.56 x10^3/uL (0.2-0.8); MONOCYTES % (AUTO) 7 % (2-9); NEUTROPHILS % (AUTO) 52 % (42-75); PLATELET COUNT 333 x10^3/uL (130-400); RED BLOOD COUNT 4.21 x10^6/uL (3.82-5.3); RED CELL DISTRIBUTION WIDTH 15.2 % (9.6-15.2)
[2019-11-06 14:32] LABS: ALANINE AMINOTRANSFERASE 34 U/L (12-78); ALKALINE PHOSPHATASE 71 U/L (45-117); BILIRUBIN,TOTAL 0.2 mg/dL (0.2-1.0); CREATININE 0.89 mg/dL (0.55-1.02)
[2019-11-06 19:20] VITALS: BP 123/81
[2019-11-06] MEDS: MONTELUKAST 10 MG TABLET PO SCH (21:00)
[2019-11-06] MEDS: CEFTRIAXONE PMX 1GM/50ML 50 ML IV SCH (21:02)
[2019-11-06] MEDS: QUETIAPINE 100MG TABLET PO SCH (22:22)
[2019-11-06] MEDS ORDERED: OMNIPAQUE 350 MG/ML, 100ML BOTTLE ONE (23:46)
[2019-11-07 00:24] VITALS: BP 139/75
[2019-11-07] MEDS: LACTOBACILLUS CHEW TABLET PO SCH ×2 (06:00→10:41)
[2019-11-07] MEDS: HEPARIN 5,000 UNITS/ML, 1ML SQ SCH (06:15)
[2019-11-07 06:42] VITALS: BP 104/67
[2019-11-07] MEDS: CALCIUM/VITAMIN D3 250-125 TABLET PO SCH (08:38)
[2019-11-07] MEDS: FLUOXETINE HCL 20 MG CAPSULE PO SCH (08:38)
[2019-11-07] MEDS: PANTOPRAZOLE 40MG TABLET PO SCH (08:38)
[2019-11-07] MEDS ORDERED: CEFD300C37 PO (09:22)
[2019-11-07 12:37] VITALS: BP 101/70
[2020-01-11] MEDS ORDERED: CETI-222 PO (23:27)
[2020-01-11] MEDS ORDERED: QUET200T4 PO (23:27)
[2020-01-11] MEDS ORDERED: FLUO20CA19 PO (23:27)
[2020-01-18] MEDS ORDERED: MUPI22OI2 TP ×2 (14:10)
[2020-01-18] MEDS ORDERED: LINE600T15 PO ×2 (14:10)
== END 2019-11-07 14:00 | disposition home or self-care (01) | DRG 720 ==
LOC: ED 20:37 → EDIP 23:08 → 4NW 11-05 14:27 → 3N 11-06 19:12 → DCLOUNGE 11-07 13:56
PROVIDERS: ADMIT Internal Medicine; ATTEND Family Medicine
PROC: 0T9B70Z Drainage of Bladder with Drainage Device, Via Natural or Artificial Opening (ICD-10-PCS; principal; 2019-11-04)
DX: A41.9 Sepsis, unspecified organism (principal); D72.810 Lymphocytopenia; E66.01 Morbid (severe) obesity due to excess calories; Z68.43 Body mass index [BMI] 50.0-59.9, adult; Z91.030 Bee allergy status; Z91.018 Allergy to other foods; Z88.0 Allergy status to penicillin; Z91.048 Other nonmedicinal substance allergy status; N39.0 Urinary tract infection, site not specified; M32.9 Systemic lupus erythematosus, unspecified; K21.9 Gastro-esophageal reflux disease without esophagitis; J45.909 Unspecified asthma, uncomplicated; Z20.828 Contact with and (suspected) exposure to other viral communicable diseases; F32.9 Major depressive disorder, single episode, unspecified; Z72.0 Tobacco use; Z91.5 Personal history of self-harm
CPT/HCPCS: 36415; 70491; 71045; 80048; 80053; 80307; 81001; 82728; 83605; 83615; 84145; 85025; 86140; 87040; 87086; 87635; 99283; G0378; J0696; J1885; Q9967; J7030

== ENCOUNTER 2019-11-18 23:35 | Emergency (ER) | payer MEDICAID ==
[~2019-11-18] VITALS: Ht 157.5 cm; Wt 123.0 kg
[~2019-11-18 23:35] MED LIST changes: +CEFD300C37 PO; +PANT40TA5 PO; -PANT40TA6 PO
[2019-11-19] MEDS ORDERED: PHENAZOPYRIDINE 200 MG TABLET PO STA (00:01)
--- NOTE | 2019-11-19 00:02 | NUR ---
PT BIB [facility] FOR POSSIBLE UTI. PT WAS DISCHARGED ABOUT A WEEK AGO WITH A UTI AND ABX. PT REPORTS ABX GOT STOLEN APPROXIMATELY 3 DAYS AGO. PT STATES SINCE THEN THE BURNING, FREQUENCY, AND DISCOMFORT HAS WORSENED. DENIES ABDOMINAL OR FLANK PAIN AT THIS TIME. ERP AT BS. PT ASSISTED TO BS COMMODE. PT PLACED ON SPO2/BP MONITORING. VSS. WCTM.
[2019-11-19] MEDS ORDERED: PHENAZOPYRIDINE 200 MG TABLET ONE (00:14)
[2019-11-19 00:21] LABS: BASOPHILS # (AUTO) 0.21 x10^3/uL (0-0.1); BASOPHILS % (AUTO) 2 % (0-1); EOSINOPHILS # (AUTO) 0.23 x10^3/uL (0-0.4); EOSINOPHILS % (AUTO) 2 % (1-7); LYMPHOCYTES # (AUTO) 3.36 x10^3/uL (1-3.4); LYMPHOCYTES % (AUTO) 32 % (22-44); MD NO; MEAN CORPUSCULAR HEMOGLOBIN 28.1 pg (27.0-34.8); MEAN CORPUSCULAR HGB CONC 32.4 g/dL (32.4-35.8); MEAN CORPUSCULAR VOLUME 86.7 fL (80-100); MONOCYTES # (AUTO) 0.87 x10^3/uL (0.2-0.8); MONOCYTES % (AUTO) 8 % (2-9); NEUTROPHILS # (AUTO) 5.74 x10^3/uL (1.8-6.8); NEUTROPHILS % (AUTO) 55 % (42-75); PLATELET COUNT 405 x10^3/uL (130-400); RED BLOOD COUNT 4.49 x10^6/uL (3.82-5.3); RED CELL DISTRIBUTION WIDTH 15.5 % (9.6-15.2)
[2019-11-19] MEDS ORDERED: IBUPROFEN 800 MG TABLET PO ONE (00:30)
[2019-11-19 00:32] LABS: ALANINE AMINOTRANSFERASE 31 U/L (12-78); ANION GAP 8 mmol/L (5-15); CALCIUM 8.4 mg/dL (8.5-10.1); CHLORIDE 109 mmol/L (98-107); CREATININE 0.93 mg/dL (0.55-1.02)
[2019-11-19] MEDS ORDERED: IBUPROFEN 800 MG TABLET ONE (00:34)
[2019-11-19 00:37] LABS: ALKALINE PHOSPHATASE 71 U/L (45-117); BILIRUBIN,TOTAL 0.2 mg/dL (0.2-1.0); TOTAL PROTEIN 7.9 g/dL (6.4-8.2)
--- NOTE | 2019-11-19 00:38 | NUR ---
PT MEDICATED PER JUN. NAD, VSS. NO LIRA IN CONDITION. WCTM. WAITING FOR LAB RESULTS
[2019-11-19 00:42] LABS: MICROSCOPIC AUTO
[2019-11-19] MEDS ORDERED: FLUCONAZOLE 200 MG TABLET PO ONE (01:18)
[2019-11-19] MEDS ORDERED: NITROFURANTOIN (MACROBID) 100 MG CAPSULE PO ONE (01:30)
--- NOTE | 2019-11-19 01:30 | NUR ---
LATE ENTRY: PT RESTING IN [facility], MEDICATED PER JUN. NAD, PAIN DECREASED. WCTM.
[2019-11-19] MEDS ORDERED: NITROFURANTOIN (MACROBID) 100 MG CAPSULE ONE (01:41)
[2019-11-19] MEDS ORDERED: FLUCONAZOLE 100 MG TABLET ONE ×2 (01:42→01:43)
[2019-11-19 02:22] VITALS: BP 114/70
--- NOTE | 2019-11-19 02:41 | NUR ---
Patient given discharge instructions and they have confirmed that they understand the instructions. Patient ambulatory with steady gait. QUESTIONS ANSWERED APPROPRIATELY, NAD, VSS. NO BELONGINGS LEFT IN ROOM AFTER DC. PT GIVEN SOCKS PER REQUEST AND TAXI VOUCHER.
== END 2019-11-19 03:03 | disposition home or self-care (01) ==
LOC: ED 11-19 00:19
DX: N30.00 Acute cystitis without hematuria (principal); B37.3 Candidiasis of vulva and vagina; R10.2 Pelvic and perineal pain; R39.15 Urgency of urination
CPT/HCPCS: 36415; 80053; 81001; 84703; 85025; 87086; 87491; 87591; 99284

== ENCOUNTER 2019-12-31 19:16 | Emergency (ER) | payer MEDICAID ==
[~2019-12-31] VITALS: Ht 157.5 cm; Wt 126.0 kg
[~2019-12-31 19:16] MED LIST changes: -PANT40TA5 PO; +PANT40TA6 PO
[2019-12-31 19:33] VITALS: BP 136/78
--- NOTE | 2019-12-31 22:00 | NUR ---
NO ANSWER WHEN CALLED FOR ROOM
--- NOTE | 2019-12-31 22:55 | NUR ---
NO ANSWER WHEN CALLED FOR ROOM
== END 2019-12-31 23:05 | disposition left against medical advice (07) ==
LOC: ED 19:36
DX: L02.415 Cutaneous abscess of right lower limb (principal); M79.674 Pain in right toe(s)
CPT/HCPCS: 99281

== ENCOUNTER 2020-01-09 04:18 | Emergency (ER) | payer MEDICAID ==
[~2020-01-09] VITALS: Ht 157.5 cm; Wt 120.0 kg
[2020-01-09 04:24] VITALS: BP 118/86
--- NOTE | 2020-01-09 04:27 | NUR ---
Patient BIB ambulance c/o low abd cramping x3 days with nausea. Patient states she is 3 weeks . Denies vomiting or diarrhea. Patient is in NAD. Respirations even and unlabored.
[2020-01-09] MEDS ORDERED: ONDANSETRON ODT 4 MG PO ONE (05:00)
[2020-01-09] MEDS ORDERED: ONDANSETRON ODT 4 MG ONE (05:05)
--- NOTE | 2020-01-09 05:22 | NUR ---
Patient in US at this time.
[2020-01-09] MEDS ORDERED: SODIUM CHLORIDE FLUSH 10ML SYR IVF ONE (06:00)
[2020-01-09] MEDS ORDERED: NEOSPORIN OINT. PKT 1 PACKET ONE (06:04)
[2020-01-09 06:06] LABS: BASOPHILS # (AUTO) 0.06 x10^3/uL (0-0.1); BASOPHILS % (AUTO) 1 % (0-1); EOSINOPHILS # (AUTO) 0.18 x10^3/uL (0-0.4); EOSINOPHILS % (AUTO) 2 % (1-7); LYMPHOCYTES # (AUTO) 2.05 x10^3/uL (1-3.4); LYMPHOCYTES % (AUTO) 17 % (22-44); MD NO; MEAN CORPUSCULAR VOLUME 87.7 fL (80-100); MEAN PLATELET VOLUME 8.7 fL (7.4-10.4); MONOCYTES # (AUTO) 0.64 x10^3/uL (0.2-0.8); MONOCYTES % (AUTO) 5 % (2-9); NEUTROPHILS # (AUTO) 9.37 x10^3/uL (1.8-6.8); NEUTROPHILS % (AUTO) 76 % (42-75); PLATELET COUNT 351 x10^3/uL (130-400); RED CELL DISTRIBUTION WIDTH 15.6 % (9.6-15.2)
[2020-01-09 06:18] LABS: ALBUMIN 3.5 g/dL (3.4-5.0); ANION GAP 8 mmol/L (5-15); CALCIUM 9.1 mg/dL (8.5-10.1); CHLORIDE 108 mmol/L (98-107)
[2020-01-09 06:24] LABS: CREATININE 0.83 mg/dL (0.55-1.02)
[2020-01-09 06:25] LABS: ALANINE AMINOTRANSFERASE 35 U/L (12-78); ALKALINE PHOSPHATASE 95 U/L (45-117); BILIRUBIN,TOTAL 0.3 mg/dL (0.2-1.0); TOTAL PROTEIN 8.7 g/dL (6.4-8.2)
--- NOTE | 2020-01-09 06:59 | NUR ---
Discharge instructions given. All questions and concerns addressed. Patient ambulatory with a steady gait. Belongings with patient.
[2020-01-11] MEDS ORDERED: FLUO20CA19 PO (23:27)
[2020-01-11] MEDS ORDERED: QUET200T4 PO (23:27)
[2020-01-11] MEDS ORDERED: CETI-222 PO (23:27)
== END 2020-01-09 07:01 | disposition home or self-care (01) ==
LOC: ED 06:33
DX: K29.00 Acute gastritis without bleeding (principal); R11.2 Nausea with vomiting, unspecified; R10.2 Pelvic and perineal pain; R36.0 Urethral discharge without blood
CPT/HCPCS: 36415; 76700; 76856; 80053; 83690; 84702; 85025; 99285; Q0162

== ENCOUNTER 2020-06-06 15:59 | Emergency (ER) | payer MEDICAID ==
[~2020-06-06] VITALS: Ht 157.5 cm; Wt 118.5 kg
[~2020-06-06 15:59] MED LIST changes: +CETI-222 PO; -CLIN300C8 PO; +CLIN300C9 PO; +FLUO20CA19 PO; +HYDR-1067 PO; -HYDR-3240 PO; +LINE600T15 PO; -MONT10TA11 PO; +MONT10TA17 PO; +MUPI22OI2 TP; +QUET200T4 PO
--- NOTE | 2020-06-06 17:23 | NUR ---
DIRECTOR OF COMPLIANCE: PT TO ROOM FROM LOBBY VIA WHEELCHAIR.
--- NOTE | 2020-06-06 17:42 | NUR ---
PT WC'D TO ROOM 5 W/ C/O PT STATES SHE WAS WALKING DOWN AND STATES SHE NOSE DIVED WHILE TRIPPING AND SMACKED CHEST ON THE CONCRETE AND MOVED HEAD "A CERTAIN WAY SO I DON'T HURT MY CHIN EVEN MORE" AND BELIEVES PT DID SOMETHING TO NECK AND BACK. PAIN SINCE. PT RESTING ON GURNEY. NADN. MONITORS APPLIED.
--- NOTE | 2020-06-06 17:47 | NUR ---
C-COLLAR REMAINS IN PLACE. VSS.
--- NOTE | 2020-06-06 18:45 | NUR ---
PT RESTING ON GURNEY. NADN. TREVIÑO.
--- NOTE | 2020-06-06 19:07 | NUR ---
Xray awaiting C-Spine CT results
--- NOTE | 2020-06-06 19:24 | NUR ---
PT TO AND FROM IMAGING IN STABLE CONDITION.
[2020-06-06 19:45] VITALS: BP 106/79
--- NOTE | 2020-06-06 19:45 | NUR ---
PT RESTINNG ON ANGELI. NADN. TREVIÑO.
--- NOTE | 2020-06-06 19:55 | NUR ---
PT TAKEN TO XR IN STABLE CONDITION.
== END 2020-06-06 20:40 | disposition home or self-care (01) ==
LOC: ED 18:30
DX: G89.11 Acute pain due to trauma (principal); M54.2 Cervicalgia; M54.5 Low back pain; Z72.9 Problem related to lifestyle, unspecified; W01.0XXA Fall on same level from slipping, tripping and stumbling without subsequent striking against object, initial encounter; Y93.89 Activity, other specified; Y92.89 Other specified places as the place of occurrence of the external cause; Y99.8 Other external cause status
CPT/HCPCS: 72110; 72125; 99284

== ENCOUNTER 2020-08-14 15:49 | Emergency (ER) | payer MEDICAID ==
[~2020-08-14] VITALS: Ht 165.1 cm; Wt 110.0 kg
[~2020-08-14 15:49] MED LIST changes: -HYDR-1067 PO; +HYDR-2214 PO
[2020-08-14] MEDS ORDERED: ACETAMINOPHEN 500 MG TABLET PO ONE (16:00)
--- NOTE | 2020-08-14 16:07 | NUR ---
PT BIBA. PER EMS PT HAD A GLF AND ROLLED HER ANKLE. PT IS ALSO 13 WEEKS AND IS HAVING SUPRAPUBIC PAIN. PT RESTING IN [facility], MONITORING IN PLACE, FRANKLYN GARCIA AT BEDSIDE FOR EVALUATION, TRINY AT THIS TIME, BREANA.
[2020-08-14] MEDS ORDERED: ACETAMINOPHEN 500 MG TABLET ONE (16:08)
--- NOTE | 2020-08-14 16:51 | NUR ---
PT AMBULATED STEADILY TO RESTROOM AT THIS TIME. PT STATES ANKLE FEELS "MUCH BETTER" BUT SHE IS STILL HAVING SOME SUPRAPUBIC CRAMPING.
[2020-08-14 17:25] VITALS: BP 135/78
[2020-08-14 17:25] LABS: MICROSCOPIC AUTO
== END 2020-08-14 17:57 | disposition home or self-care (01) ==
LOC: ED 17:46
DX: O26.891 Other specified pregnancy related conditions, first trimester (principal); S93.491A Sprain of other ligament of right ankle, initial encounter; S30.1XXA Contusion of abdominal wall, initial encounter; O23.11 Infections of bladder in pregnancy, first trimester; Z3A.13 13 weeks gestation of pregnancy; W01.0XXA Fall on same level from slipping, tripping and stumbling without subsequent striking against object, initial encounter; Y93.89 Activity, other specified; Y92.410 Unspecified street and highway as the place of occurrence of the external cause; Y99.8 Other external cause status
CPT/HCPCS: 76801; 81001; 87077; 87086; 99285

== ENCOUNTER 2020-08-23 15:47 | Emergency (ER) | payer MEDICAID ==
[~2020-08-23] VITALS: Ht 157.5 cm; Wt 111.0 kg
--- NOTE | 2020-08-23 15:57 | NUR ---
PT WAS AT [facility] EATING LUNCH WHEN SHE GOT BIT BY A BEE STING. C/O PAIN IN NECK AND TROUBLED BREATHING PT GIVEN ALBUTEROL BREATHING TX, 50 MG TOTAL OF BENADRYL PT 15 WEEKS PREGANT. ATTACHED TO CARDIAC/SP02/BP MONITORS. VSS WITH SLIGHTLY ELEVATED HR, ON 2L NC. ON MED FOR UTI.
--- NOTE | 2020-08-23 16:55 | NUR ---
PT RESTING IN BED. ATTACHED TO MONITORS. PT IN NAD
[2020-08-23 17:23] LABS: ALANINE AMINOTRANSFERASE 22 U/L (12-78); ALBUMIN 2.8 g/dL (3.4-5.0); ANION GAP 9 mmol/L (5-15); CHLORIDE 110 mmol/L (98-107)
[2020-08-23 17:26] LABS: BASOPHILS % (AUTO) 1 % (0-1); EOSINOPHILS % (AUTO) 1 % (1-7); LYMPHOCYTES % (AUTO) 27 % (22-44); MEAN CORPUSCULAR HEMOGLOBIN 29.5 pg (27.0-34.8); MEAN CORPUSCULAR HGB CONC 33.9 g/dL (32.4-35.8); MEAN PLATELET VOLUME 8.8 fL (7.4-10.4); MONOCYTES % (AUTO) 7 % (2-9); NEUTROPHILS % (AUTO) 64 % (42-75); PLATELET COUNT 279 x10^3/uL (130-400); RED CELL DISTRIBUTION WIDTH 13.9 % (9.6-15.2)
--- NOTE | 2020-08-23 17:31 | NUR ---
PT AMBULATED TO BATHROOM. OBTAINED U/A. PT CALLED FIMILES ON PHONE. PT AMBULATED BACK TO ROOM. TOLERATED WELL. PT IN NAD.
--- NOTE | 2020-08-23 17:31 | NUR ---
PT GIVEN NON SLIP SOCKS
[2020-08-23 17:33] LABS: MD NO
[2020-08-23 17:39] LABS: ALKALINE PHOSPHATASE 54 U/L (45-117); BILIRUBIN,TOTAL 0.2 mg/dL (0.2-1.0); TOTAL PROTEIN 7.1 g/dL (6.4-8.2)
--- NOTE | 2020-08-23 17:56 | NUR ---
[facility] [phone]
[2020-08-23 18:05] LABS: MICROSCOPIC AUTO
--- NOTE | 2020-08-23 18:08 | NUR ---
[facility] NUMBER [phone]
[2020-08-23 18:36] VITALS: BP 119/76
[2020-08-23] MEDS ORDERED: FOSFOMYCIN 3 GM PACKET PO ONE (20:00)
[2020-08-23] MEDS ORDERED: ONDANSETRON ODT 4 MG PO ONE (20:00)
[2020-08-23] MEDS ORDERED: FOSFOMYCIN 3 GM PACKET ONE (20:22)
[2020-08-23] MEDS ORDERED: ONDANSETRON ODT 4 MG ONE (20:22)
--- NOTE | 2020-08-23 20:40 | NUR ---
PT GIVEN WATER AND SPRITE
[2020-08-24] MEDS ORDERED: SERT50TA28 PO (16:58)
== END 2020-08-23 21:20 | disposition home or self-care (01) ==
LOC: ED 18:58
DX: O23.12 Infections of bladder in pregnancy, second trimester (principal); T78.40XA Allergy, unspecified, initial encounter; R10.2 Pelvic and perineal pain; Z3A.15 15 weeks gestation of pregnancy; X58.XXXA Exposure to other specified factors, initial encounter
CPT/HCPCS: 36415; 76815; 80053; 81001; 84702; 84703; 85025; 87086; 93005; 99285; Q0162; 87077

== ENCOUNTER 2020-08-24 14:48 | Emergency (ER) | payer MEDICAID ==
[~2020-08-24] VITALS: Ht 157.5 cm; Wt 110.0 kg
--- NOTE | 2020-08-24 15:10 | NUR ---
pt BIB [facility] c/o Si with plan to OD on pills. pt reports that she is feeling very depressed after an argument with her boyfrend today. pt reports that she has a hx of SA 8 months ago by overdosing on her own medications pt reports that she has a hx of depression and PTSD as well as a mild form of "mental retardation" pt reports that she is 15 weeks . no related c/o. pt was seen here yesterday for allergic reaction to a bee sting and states that her was evaluated on her previous visit Dr. Earl at bedside for eval pt denies injury. denies hallucinations or delusions. no obvious injury. no family at bedside
--- NOTE | 2020-08-24 15:15 | NUR ---
room has been secured and pt belongings removed, labeled and secured. pt ambulated to BR to attempt to give urine sample but staets that she is unable at this time sitter present for safety pt watching TV
--- NOTE | 2020-08-24 15:40 | NUR ---
Ava, psych ABNORMAL PSYCHOLOGY TEACHER at bedside for eval. PO water given per request
--- NOTE | 2020-08-24 16:20 | NUR ---
pt has been ambulated to use the phone to call her telehealth case manager per LIVAN ontiveros. meal tray delivered. pt still unable to provide urine sample at this time. susan Escalante APRN and Josephine KOCH at bedside for further eval. pt tearful room secure. sitter present for safety
[2020-08-24] MEDS ORDERED: SERT50TA28 PO (16:58)
[2020-08-24] MEDS ORDERED: SERTRALINE 50MG TABLET PO ONE (17:00)
--- NOTE | 2020-08-24 17:18 | NUR ---
meds ordered from pharmacy
--- NOTE | 2020-08-24 18:00 | NUR ---
pt belongings returned and pt given phone number of relative who has called requesting information. pt currently using telephone
[2020-08-24 19:07] VITALS: BP 139/87
== END 2020-08-24 18:47 ==
LOC: ED 14:53
DX: F33.9 Major depressive disorder, recurrent, unspecified (principal); R45.851 Suicidal ideations; Z87.891 Personal history of nicotine dependence
CPT/HCPCS: 99283

== ENCOUNTER 2020-08-25 09:18 | Emergency (ER) | payer MEDICAID ==
[~2020-08-25] VITALS: Ht 157.5 cm; Wt 110.0 kg
--- NOTE | 2020-08-25 09:52 | NUR ---
DUPLICATOR PUNCH SET UP OPERATOR: PT TO ROOM FROM LOBBY VIA W/C
--- NOTE | 2020-08-25 10:01 | NUR ---
PT AMBULATORY TO ROOM 33 W/ C/O NAUSEA/VOMITING AND LOSS OF APPETITE X 3 WEEKS. DENIES DIARRHEA. STATES IT HAS BEEN HARD TO KEEP ANYTHING DOWN. DENIES ANY VB/CRAMPING/DISCHARGE. DOES NOT HAVE GRAPHITE GRINDER YET. A0. STATES SHE WAS RESTARTED ON ZOLOFT YESTERDAY AND NOW FEELS WORSE. STATES THE PSYCHIATRIST PRESCRIBED THIS TO HER YESTERDAY SHE WAS SEEN HERE YESTERDAY FOR SI. DENIES SI/HI. PT RESTING ON GURNEY. NADN. MONITORS APPLIED. VSS. WARM BLANKET PROVIDED.
--- NOTE | 2020-08-25 10:21 | NUR ---
SW NOTIFIED OF NEED.
[2020-08-25] MEDS ORDERED: ONDANSETRON 2MG/ML, 2ML ONE ×2 (10:24→12:23)
[2020-08-25] MEDS ORDERED: SODIUM CHLORIDE FLUSH 10ML SYR IVF ONE (10:30)
[2020-08-25] MEDS ORDERED: ONDANSETRON 2MG/ML, 2ML IVPush ONE ×2 (10:30→12:30)
[2020-08-25] MEDS ORDERED: SODIUM CHLORIDE 0.9% 1,000ML IVBOLUS ONE (10:30)
[2020-08-25 10:43] LABS: BASOPHILS % (AUTO) 0 % (0-1); EOSINOPHILS % (AUTO) 1 % (1-7); LYMPHOCYTES % (AUTO) 20 % (22-44); MEAN CORPUSCULAR HEMOGLOBIN 29.4 pg (27.0-34.8); MEAN CORPUSCULAR HGB CONC 33.9 g/dL (32.4-35.8); MEAN PLATELET VOLUME 8.7 fL (7.4-10.4); MONOCYTES % (AUTO) 8 % (2-9); NEUTROPHILS % (AUTO) 72 % (42-75); PLATELET COUNT 290 x10^3/uL (130-400); RED BLOOD COUNT 4.03 x10^6/uL (3.82-5.3); RED CELL DISTRIBUTION WIDTH 13.6 % (9.6-15.2)
[2020-08-25 10:46] LABS: MD NO
[2020-08-25 10:51] LABS: ALBUMIN 3.2 g/dL (3.4-5.0); ANION GAP 7 mmol/L (5-15); CHLORIDE 108 mmol/L (98-107)
--- NOTE | 2020-08-25 11:03 | NUR ---
PT RESTING ON ZEE LINARES STATES SHE WILL COME DOWN TO TALK TO PT SHORTLY.
--- NOTE | 2020-08-25 11:33 | NUR ---
PT PROVIDED W/ PO FLUIDS FOR PO CHALLENGE.
--- NOTE | 2020-08-25 11:33 | NUR ---
ZEE PONCE AT BEDSIDE FOR EVAL.
--- NOTE | 2020-08-25 11:39 | NUR ---
PT RESTING ON GURNEY. NADN. TREVIÑO.
--- NOTE | 2020-08-25 11:41 | NUR ---
PT STATES SHE ATTEMPTED PO CHALLENGE. TOOK A FEW SIPS AND STATES SHE STARTED DRY HEAVING. NO EMESIS. ERP DR. STALLINGS NOTIFIED.
[2020-08-25 11:47] LABS: MICROSCOPIC INDICATED
[2020-08-25] MEDS ORDERED: metroNIDAZOLE 500 MG TABLET PO ONE (12:30)
[2020-08-25] MEDS ORDERED: metroNIDAZOLE 500 MG TABLET ONE (12:36)
[2020-08-25 12:49] VITALS: BP 122/82
--- NOTE | 2020-08-25 12:49 | NUR ---
PT ALBERT PO FLUIDS AND PO ABX. PLACED FOR RECHECK. PT RESTING ON [facility]. VSS.
== END 2020-08-25 13:23 | disposition home or self-care (01) ==
LOC: ED 10:29
DX: O21.9 Vomiting of pregnancy, unspecified (principal); R10.84 Generalized abdominal pain; Z3A.15 15 weeks gestation of pregnancy
CPT/HCPCS: 36415; 80048; 81001; 82040; 85025; 87086; 96361; 96374; 96376; 99285; J2405; J7030; 96375

== ENCOUNTER 2020-09-01 22:17 | Emergency (ER) | payer MEDICAID ==
[~2020-09-01] VITALS: Ht 157.5 cm; Wt 120.0 kg
--- NOTE | 2020-09-01 22:22 | NUR ---
INITIAL PT CONTACT. PT BIBA C/O ABD PAIN. 16 WEEKS , NO PROGRAM MANAGEMENT MANAGER CURRENTLY, TAKING VITAMINS. PT TEARFUL AND ANXIOUS UPON ARRIVAL. PT DENIES AND VAGINAL BLEEDING, DISCHARGE OR OTHER COMPLAINTS. PT PLACED ON CONTINUOUS MONITORING. PT DENIES ANY NEEDS AT THIS TIME. CALL LIGHT AND PERSONAL BELONGINGS IN REACH. ERP AT BEDSIDE.
--- NOTE | 2020-09-01 22:49 | NUR ---
US AT BEDSIDE
[2020-09-01 22:59] LABS: BASOPHILS % (AUTO) 1 % (0-1); EOSINOPHILS % (AUTO) 1 % (1-7); LYMPHOCYTES % (AUTO) 31 % (22-44); MEAN CORPUSCULAR HEMOGLOBIN 29.5 pg (27.0-34.8); MEAN CORPUSCULAR HGB CONC 34.4 g/dL (32.4-35.8); MEAN PLATELET VOLUME 8.6 fL (7.4-10.4); MONOCYTES % (AUTO) 8 % (2-9); NEUTROPHILS % (AUTO) 59 % (42-75); PLATELET COUNT 281 x10^3/uL (130-400); RED BLOOD COUNT 4.09 x10^6/uL (3.82-5.3); RED CELL DISTRIBUTION WIDTH 14.5 % (9.6-15.2)
[2020-09-01 23:06] LABS: MD NO
[2020-09-01 23:12] LABS: ALBUMIN 2.8 g/dL (3.4-5.0); ANION GAP 6 mmol/L (5-15); CALCIUM 9.1 mg/dL (8.5-10.1); CHLORIDE 107 mmol/L (98-107); CREATININE 0.57 mg/dL (0.55-1.02)
--- NOTE | 2020-09-01 23:15 | NUR ---
PT AMBULATORY WITH STEADY GAIT WITH THIS RN TO BATHROOM. PT PROVIDED URINE SAMPLE, SAMPLE SENT TO LAB. NO ADDITIONAL NEEDS AT THIS TIME. CALL LIGHT AND BELONGINGS WITHIN REACH
[2020-09-01 23:43] LABS: MICROSCOPIC NOT IND
[2020-09-02 00:01] VITALS: BP 127/72
== END 2020-09-02 00:54 | disposition home or self-care (01) ==
LOC: ED 23:20
DX: O26.892 Other specified pregnancy related conditions, second trimester (principal); O21.8 Other vomiting complicating pregnancy; R10.84 Generalized abdominal pain; R10.30 Lower abdominal pain, unspecified; Z3A.16 16 weeks gestation of pregnancy
CPT/HCPCS: 36415; 76815; 80048; 81003; 82040; 84702; 85025; 99284

== ENCOUNTER 2020-09-16 18:42 | Emergency (ER) | payer MEDICAID ==
[~2020-09-16] VITALS: Ht 157.5 cm; Wt 121.0 kg
--- NOTE | 2020-09-16 20:03 | NUR ---
pt came into ed this evening due to abdominal pain with @18 weeks. pt reprots falling over a dog today and thats when pain originally started and then the dog jumped on her stomach causing pain. pt denies loc at time of pain, lower right quadrant abdominal pain, denies cramping or bleeding. pt changed into gown, resting on gurney, nad, vss, bed in lowest, rails engaged, call light on lap, reports 5/10 pain. wctm.
--- NOTE | 2020-09-16 21:00 | NUR ---
Patient is resting comfortably in bed. Bed in lowest, rails engaged, call light on lap. Vital Signs within normal limits. WCTM. WAITING FOR US. PROVIDED SNACKS FOR COMFORT
--- NOTE | 2020-09-16 22:17 | NUR ---
Patient is resting comfortably in bed. Bed in lowest, rails engaged, call light on lap. Vital Signs within normal limits. NAD, DENIES ADDITIONAL NEEDS AT THIS TIME. PROVIDED MORE SNACKS, WAITING FOR US READ, WCTM.
[2020-09-16 22:38] VITALS: BP 118/76
--- NOTE | 2020-09-16 22:51 | NUR ---
PT AMBULATED TO AND FROM RESTROOM WITH A SMOOTH AND STEADY GAIT, NAD, BACK TO ROOM, PT TO BE DC'D
--- NOTE | 2020-09-16 23:11 | NUR ---
PROVIDED TAXI VOUCHER FOR LA.
--- NOTE | 2020-09-16 23:11 | NUR ---
Patient/Caregiver given discharge instructions and they have confirmed that they understand the instructions. Patient ambulatory with steady gait. NAD, all questions answered appropriately, denies additional needs at this time. No personal belongings left in room after discharge.
== END 2020-09-16 23:31 | disposition home or self-care (01) ==
LOC: ED 20:48
DX: O26.892 Other specified pregnancy related conditions, second trimester (principal); R10.9 Unspecified abdominal pain; Z87.891 Personal history of nicotine dependence; Z3A.18 18 weeks gestation of pregnancy
CPT/HCPCS: 76815; 99284

== ENCOUNTER 2020-09-21 21:44 | Emergency (ER) | payer MEDICAID ==
[~2020-09-21] VITALS: Ht 157.5 cm; Wt 110.6 kg
[2020-09-21 22:07] VITALS: BP 122/78
== END 2020-09-21 23:42 | disposition other institution (70) ==
LOC: ED 23:39
DX: O26.892 Other specified pregnancy related conditions, second trimester (principal); R10.9 Unspecified abdominal pain; Z3A.19 19 weeks gestation of pregnancy; Z53.21 Procedure and treatment not carried out due to patient leaving prior to being seen by health care provider
CPT/HCPCS: 99281

== ENCOUNTER 2020-10-10 15:45 | Outpatient (CLI) | payer MEDICAID ==
[~2020-10-10] VITALS: Ht 157.5 cm; Wt 108.1 kg
[2020-10-10 16:33] LABS: MICROSCOPIC INDICATED
[2020-10-10 16:47] LABS: AMPHETAMINE SCREEN, URINE Negative (Negative); BARBITURATE SCREEN, URINE Negative (Negative); BENZODIAZEPINE SCREEN, URINE Negative (Negative); CANNABINOID SCREEN, URINE Negative (Negative); COCAINE SCREEN, URINE Negative (Negative); METHADONE SCREEN, URINE Negative (Negative); OPIATE SCREEN, URINE Negative (Negative)
[2020-10-10 16:49] VITALS: BP 134/65
== END 2020-10-10 18:10 | disposition home or self-care (01) ==
LOC: LDOP 15:45
PROVIDERS: ATTEND Obstetrics & Gynecology
DX: O26.892 Other specified pregnancy related conditions, second trimester (principal); R25.2 Cramp and spasm; Z3A.21 21 weeks gestation of pregnancy
CPT/HCPCS: 80307; 81001; 87086; 99211; G0463